=== PATIENT | female | born 1955 | race Caucasian/White ===

== ENCOUNTER 2017-02-17 17:37 | Emergency (ER) | payer OTHER ==
[~2017-02-17] VITALS: Ht 160 cm; Wt 49.9 kg
[~2017-02-17 17:37] MED LIST: ACET325T53 PO; ARIP2TAB9 PO; ARMO150T4 PO; BUPR150T PO; CLON0.5T23 PO; DICL30AD3 PO; ENOX40DI SQ; ESTR-32 PO; FLUO20TA28 PO; HYDR2TAB35 PO; OXYC1TAB8 PO; PANT40TA4 PO; RISP1TAB27 PO; SPIR100T PO; TOPI-67 PO; TRAZ150T75 PO; [UNRECOGNIZED DRUG - OTHER] PO
[2017-02-17] MEDS ORDERED: ONDANSETRON HCL/PF 4 MG/2 ML VIAL IVP ONE (18:00)
[2017-02-17] MEDS ORDERED: MORPHINE SULFATE INJ 2 MG/ML DISP.SYRIN IV ONE (18:00)
[2017-02-17] MEDS ORDERED: MORPHINE SULFATE INJ 4 MG/ML DISP.SYRIN ONE (18:01)
[2017-02-17] MEDS ORDERED: ONDANSETRON HCL/PF 4 MG/2 ML VIAL ONE (18:01)
--- NOTE | 2017-02-17 18:31 | NUR ---
CUSTOMER COMPLAINT CLERK AT BEDSIDE
--- NOTE | 2017-02-17 18:38 | NUR ---
PT SIGNED CONSENTS FOR CONSCIOUS SEDATION . CLOSED REDUCTION INTERNAL FIXATION.
[2017-02-17] MEDS ORDERED: IV NS 0.9% 1,000 ML ONE (18:53)
[2017-02-17] MEDS ORDERED: PROPOFOL 20 ML IV ONE (18:53)
[2017-02-17] MEDS ORDERED: FENTANYL PF 100MCG/2ML AMPUL ONE (18:53)
[2017-02-17] MEDS ORDERED: IV SET PRIMARY PUMP SET 1 EA INFUS.SET MC ONE (18:53)
[2017-02-17] MEDS ORDERED: FENTANYL PF 100MCG/2ML AMPUL IV ONE (19:00)
[2017-02-17] MEDS ORDERED: PROPOFOL 200 MG/20 ML VIAL IV ONE ×3 (19:00→21:30)
[2017-02-17] MEDS ORDERED: IV NS 0.9% 1,000 ML BAG IV ONE (19:00)
[2017-02-17] MEDS ORDERED: SPIR50TA3 PO (19:04)
[2017-02-17] MEDS ORDERED: LEVO2TAB4 PO ×2 (19:04)
[2017-02-17] MEDS ORDERED: OXCA300T PO (19:04)
[2017-02-17] MEDS ORDERED: CLON0.5T4 PO (19:04)
[2017-02-17] MEDS ORDERED: ARMO50TA2 PO (19:04)
[2017-02-17] MEDS ORDERED: TRAZ-147 PO (19:04)
[2017-02-17] MEDS ORDERED: LINA290C PO (19:04)
[2017-02-17] MEDS ORDERED: PREN1TAB81 PO (19:05)
[2017-02-17] MEDS ORDERED: [UNRECOGNIZED DRUG - SUPPLY] (19:10)
--- NOTE | 2017-02-17 19:54 | NUR ---
MODERATE SEDATION INITITATED WITH DR ESPINOZA, RT AT BEDSIDE.PT ABLE TO TOLERATE.
--- NOTE | 2017-02-17 20:13 | NUR ---
AVIONICS SYSTEMS REPAIRER AT BEDSIDE
--- NOTE | 2017-02-17 21:08 | NUR ---
Patient discharged to home in stable condition. Written and verbal after care instructions given. Patient verbalizes understanding of instruction.
--- NOTE | 2017-02-17 21:08 | NUR ---
IV removed. Catheter intact and site benign. Pressure and 4x4 applied to site. No bleeding noted.
[2017-02-17 21:09] VITALS: BP 146/68
== END 2017-02-17 21:11 | disposition home or self-care (01) ==
LOC: ER 17:39
DX: S52.591A Other fractures of lower end of right radius, initial encounter for closed fracture (principal); K21.9 Gastro-esophageal reflux disease without esophagitis; Z88.8 Allergy status to other drugs, medicaments and biological substances; W19.XXXA Unspecified fall, initial encounter; Y93.89 Activity, other specified; Y92.89 Other specified places as the place of occurrence of the external cause; Y99.8 Other external cause status
CPT/HCPCS: 25605; 73110 ×2; 96361; 96374; 96375; 99152; 99285; A4606; J2270; J2405; J2704; J3010; J7030; Z7610